=== PATIENT | female | born 1965 | race Caucasian/White ===

== ENCOUNTER 2016-06-12 10:17 | Emergency (ER) | payer OTHER ==
[~2016-06-12] VITALS: Ht 172.7 cm; Wt 63.5 kg
[~2016-06-12 10:17] MED LIST: ALPR0.25 PO; GABA800T OR; LISI-360 PO; NOVOLOGP2 SQ; SIMV20TA OR
[2016-06-12 10:20] VITALS: BP 209/97; PULSE 81; RESP 16; TEMP 98.1; O2SAT 98; O2SAT 99
[2016-06-12] MEDS ORDERED: SODIUM CHLOR 0.9% 1000 ML INJ 1,000 ML IV ONE (10:25)
[2016-06-12] MEDS ORDERED: INSULIN HUMAN REGULAR 1,000 UNITS/10 ML VIAL IV PUSH ONE (10:30)
[2016-06-12] MEDS ORDERED: diphenhydrAMINE HCL 50 MG/ML VIAL IV PUSH ONE (10:30)
[2016-06-12] MEDS ORDERED: SODIUM CHLORIDE 0.9% FLUSH 5 ML FLUSH IVF PRN (10:30)
[2016-06-12] MEDS ORDERED: PROCHLORPERAZINE INJ 10 MG/2 ML VIAL IVS ONE (10:30)
--- NOTE | 2016-06-12 10:36 | PD ---
HPI . Syncope Chief Complaint: syncope Time Seen by Provider: 10:22 Travel History International Travel<30 days: No Contact w/Intl Traveler<30days: No History of Present Illness HPI Patient was sent to us via [facility] from a doctor's office where she had suffered a syncopal episode during a steroid injection. She actually had bilateral wrist injected. She states she did okay with the first injection but then had a syncopal episode with the second injection. She states that she feels very nauseous. She was very lightheaded. [facility] Social History Tobacco Use: Yes Allergies-Medications (Allergen,Severity, Reaction): Coded Allergies: Penicillin (Verified Allergy, Mild, Itching, 06/12/16) Reported Meds & Prescriptions Reported Meds & Active Scripts Active Reported Paxil (Paroxetine HCl) 10 Mg Tab Unknown Dose PO HS Duavee (Conjugated Estrogens-Bazedoxifene) 0.45-20 Mg Tab Unknown Dose PO DAILY Hydrochlorothiazide 25 Mg Tab 25 Mg PO HS Novolog Inj (Insulin Aspart) 1,000 Unit/10 Ml Vial 0 SQ DIRECTED Sliding Scale as directed. Neurontin (Gabapentin) 800 Mg Tab 800 Mg PO HS Review of Systems Except as stated in HPI: all other systems reviewed are Neg General / Constitutional: No: Fever, Chills HENT: Positive: Lightheadedness Cardiovascular: No: Chest Pain or Discomfort Respiratory: No: Shortness of Breath Gastrointestinal: Positive: Nausea, Vomiting Genitourinary: No: Incontinence Musculoskeletal: Positive: Pain (both wrists) Skin: Positive Other (diaphoresis) Neurologic: Positive: Weakness, Dizziness, Syncope, No: Focal Abnormalities Physical Exam Narrative GENERAL: Patient is lying on the stretcher with an emesis bag in her lap. She doesn't like she feels very well. SKIN: Warm and dry. Not currently diaphoretic. HEAD: Atraumatic. Normocephalic. EYES: Pupils equal and round. Extraocular movements are intact. ENT: No nasal bleeding or discharge. Mucous membranes pink and moist. NECK: Trachea midline. Neck is supple. CARDIOVASCULAR: Regular rate and rhythm. Heart sounds are normal. RESPIRATORY: No accessory muscle use. Lungs are clear with full air movement throughout. GASTROINTESTINAL: Abdomen soft, non-tender, nondistended. MUSCULOSKELETAL: No obvious deformities. No edema. She has Band-Aids on both wrists near the extensor tendons of her thumbs. NEUROLOGICAL: Awake and alert. No obvious cranial nerve deficits. Motor grossly within normal limits. Normal speech. PSYCHIATRIC: Appropriate mood and affect; insight and judgment normal. Data Data Last Documented VS Vital Signs Date Time Temp Pulse Resp B/P Pulse Ox O2 Delivery O2 Flow Rate FiO2 06/12/16 10:20 16 99 Room Air 06/12/16 10:20 98.1 81 209/97 Orders Electrocardiogram (06/12/16 10:25) Basic Metabolic Panel (Bmp) (06/12/16 10:25) Complete Blood Count With Diff (06/12/16 10:25) Ckmb (Isoenzyme) Profile (06/12/16 10:25) Troponin I (06/12/16 10:25) Ecg Monitoring (06/12/16 10:25) Iv Access Insert/Monitor (06/12/16 10:25) Oximetry (06/12/16 10:25) Sodium Chloride 0.9% Flush (Ns Flush) (06/12/16 10:30) Sodium Chlor 0.9% 1000 Ml Inj (Ns 1000 M (06/12/16 10:25) Prochlorperazine Inj (Compazine Inj) (06/12/16 10:30) Diphenhydramine Inj (Benadryl Inj) (06/12/16 10:30) Insulin Human Regular Inj (Novolin R Inj (06/12/16 10:30) CKMB (06/12/16 10:30) CKMB% (06/12/16 10:30) Labs Laboratory Tests Test 06/12/16 10:30 White Blood Count 5.1 TH/MM3 Red Blood Count 4.44 MIL/MM3 Hemoglobin 12.9 GM/DL Hematocrit 39.6 % Mean Corpuscular Volume 89.2 FL Mean Corpuscular Hemoglobin 29.0 PG Mean Corpuscular Hemoglobin 32.6 % Concent Red Cell Distribution Width 13.3 % Platelet Count 277 TH/MM3 Mean Platelet Volume 8.3 FL Neutrophils (%) (Auto) 59.3 % Lymphocytes (%) (Auto) 31.0 % Monocytes (%) (Auto) 7.0 % Eosinophils (%) (Auto) 1.5 % Basophils (%) (Auto) 1.2 % Neutrophils # (Auto) 2.9 TH/MM3 Lymphocytes # (Auto) 1.6 TH/MM3 Monocytes # (Auto) 0.4 TH/MM3 Eosinophils # (Auto) 0.1 TH/MM3 Basophils # (Auto) 0.1 TH/MM3 CBC Comment DIFF FINAL Differential Comment Sodium Level 137 MEQ/L Potassium Level 4.3 MEQ/L Chloride Level 100 MEQ/L Carbon Dioxide Level 27.7 MEQ/L Anion Gap 9 MEQ/L Blood Urea Nitrogen 29 MG/DL Creatinine 1.50 MG/DL Estimat Glomerular Filtration 36 ML/MIN Rate Random Glucose 363 MG/DL Calcium Level 8.9 MG/DL Total Creatine Kinase 260 U/L Creatine Kinase MB 3.9 NG/ML Creatine Kinase MB % 1.5 % Troponin I LESS THAN 0.02 NG/ML MDM Medical Decision Making Medical Screen Exam Complete: Yes Emergency Medical Condition: Yes Interpretation(s) EKG shows a normal sinus rhythm with no acute ST segment elevation or depression. She does not have any old EKGs for comparison. Differential Diagnosis My differential diagnosis of syncope includes but is not limited to cardiac arrhythmia, hypovolemia, anemia, neurological catastrophe, vasovagal response Narrative Course Patient presents following a syncopal episode during a procedure. Most likely, it is a vasovagal event. However, she is hyper rather than hypotensive on arrival. Also, her sugar is high. Her CBC is normal. Chemistries are remarkable for diminished renal function and a glucose of 363. RI and troponin are negative. Patient is feeling much better. Critical Care Narrative Aggregate critical care time was [-] minutes. Time to perform other separately billable procedures was not included in the critical care time. My time did not include minutes spent treating any other patients simultaneously or on activities that did not directly contribute to the patient's treatment. The services I provided to this patient were to treat and/or prevent clinically significant deterioration that could result in: Fatal dysrhythmia, cardiovascular collapse, permanent neurological sequela. I provided critical care services requiring my management, as noted below: Chart data review, documentation time, medication orders and management, vital sign assessments/reviewing monitor data, ordering and reviewing lab tests, ordering and interpreting/reviewing x-rays and diagnostic studies, care of the patient and discussion of the patient with the admitting physicians. Diagnosis Primary Impression: Vasovagal syncope Additional Impressions: Hyperglycemia Hypertension Qualified Code: I10 - Essential hypertension Disposition: 01 DISCHARGE HOME Condition: Stable Liz Centeno MD Jun 12, 2016 10:36
[2016-06-12 10:38] LABS: AUTOMATED NEUTROPHIL # 2.9 TH/MM3 (1.8-7.7); BASOPHIL # 0.1 TH/MM3 (0-0.2); BASOPHIL % 1.2 % (0.0-2.0); EOSINOPHIL # 0.1 TH/MM3 (0-0.4); EOSINOPHIL % 1.5 % (0.0-4.0); HEMATOCRIT 39.6 % (35.0-46.0); HEMO FLAGS DIFF FINAL; LYMPHOCYTE # 1.6 TH/MM3 (1.0-4.8); MEAN CELL VOLUME 89.2 FL (80.0-100.0); MEAN CORPUSCULAR HGB CONC 32.6 % (32.0-36.0); NEUT % 59.3 % (16.0-70.0); PLATELET COUNT 277 TH/MM3 (150-450); RED BLOOD COUNT 4.44 MIL/MM3 (4.00-5.30); RED CELL DISTRIBUTION WIDTH 13.3 % (11.6-17.2); WHITE BLOOD COUNT 5.1 TH/MM3 (4.0-11.0)
[2016-06-12 10:46] LABS: CHLORIDE 100 MEQ/L (98-107); POTASSIUM 4.3 MEQ/L (3.5-5.1); SODIUM (NA) 137 MEQ/L (136-145)
[2016-06-12 10:49] LABS: ANION GAP 9 MEQ/L (5-15); BICARBONATE 27.7 MEQ/L (21.0-32.0); BLOOD UREA NITROGEN 29 MG/DL (7-18)
[2016-06-12 10:52] LABS: GLOMERULAR FILTRATION RATE 36 ML/MIN (>89)
[2016-06-12 10:55] LABS: CREATINE KINASE 260 U/L (26-192)
[2016-06-12] MEDS ORDERED: CONJ1TAB PO (10:56)
[2016-06-12] MEDS ORDERED: NOVOLOGP2 SQ (10:56)
[2016-06-12] MEDS ORDERED: NEUR800T PO (10:56)
[2016-06-12] MEDS ORDERED: PAXI10TA2 PO (10:56)
[2016-06-12] MEDS ORDERED: HYDR25TA5 PO (10:56)
[2016-06-12 11:07] LABS: CKMB 3.9 NG/ML (0.5-3.6)
[2016-06-12 12:01] VITALS: BP 160/88
--- NOTE | 2016-06-13 18:53 | EKG ---
Date Performed: 06/12/2016 Time Performed: 10:33:26 PTAGE: 51 years EKG: Sinus rhythm Normal ECG PREVIOUS TRACING : 04/16/2005 08.19 Since previous tracing, no significant change noted DOCTOR: Ara Negro Interpretating Date/Time 06/13/2016 18:52:12
== END 2016-06-12 12:05 | disposition home or self-care (01) ==
LOC: PHED 10:17
DX: R55 Syncope and collapse (principal); R73.9 Hyperglycemia, unspecified; I10 Essential (primary) hypertension; Z72.0 Tobacco use
CPT/HCPCS: 80048; 82550; 82552; 84484; 85025; 93005; J0780; J1815; J7030; 96374; 96375

== ENCOUNTER → 2016-10-22 | Day surgery (SDC) | payer OTHER ==
[~2016-10-22] MED LIST changes: +ACETAMINOPHEN/HYDROcodone 325 MG/7.5 MG TAB ONE; -ALPR0.25 PO; +CONJ1TAB PO; +FLUMAZENIL 0.5 MG/5 ML VIAL ONE; -GABA800T OR; +HYDR25TA5 PO; +KETOROLAC TROMETHAMINE 30 MG/ML (IVP) VIAL IV PUSH ONE; -LISI-360 PO; +MIDAZOLAM HCL 2 MG/2 ML VIAL ONE; +NEUR800T PO; +ONDANSETRON HCL 4 MG/2 ML VIAL IV PUSH ONE; +PAXI10TA2 PO; +PROPOFOL 200 MG/20 ML AMP IV ONE; -SIMV20TA OR; +SODIUM CHLOR 0.9% 1000 ML INJ 1,000 ML IV ONE; +ceFAZolin INJ 1,000 MG VIAL ONE
--- NOTE | 2016-10-22 10:51 | TN ---
cc: SREE ARECHIGA M.D., STEPHEN J. M.D. DATE OF SURGERY 10/22/2016 PREOPERATIVE DIAGNOSIS Patient with postmenopausal bleeding cervical polyp. PROCEDURE Exam under anesthesia, diagnostic hysteroscopy with polypectomy, dilatation and curettage. POSTOPERATIVE DIAGNOSIS Patient with postmenopausal bleeding cervical polyp. SURGEON Arvin Lopez MD ANESTHESIA General with LMA ESTIMATED BLOOD LOSS Minimal DRAINS None PATHOLOGY SPECIMEN Included endocervical polyp and endometrial curettings with fragments of a polyp. INDICATIONS FOR THE PROCEDURE Patient with episodic bleeding, has been postmenopausal for several years. Ultrasound revealed a thickening within the endometrial lining, as well as a visible polyp at the external os of the cervix. Recommendation is to proceed with diagnostic hysteroscopy, biopsy and dilatation and curettage. The patient received Ancef 2 grams prophylactically. DESCRIPTION OF PROCEDURE The patient was taken to the operating room in stable condition and underwent general anesthesia with LMA placement. She was carefully positioned in the dorsolithotomy position using candy-cane stirrups on the lower extremities. She had sequentials placed for VTE prophylaxis. She was prepped and draped. A time-out was conducted, agreed by all present in the room. Examination of the patient's anatomy was conducted. The patient had no evidence of prolapse. Cervix was midline. Normal size and shape. A 1 cm polyp was evident at the external os. Visualization of the endometrial cavity was accomplished by securing the cervix with a single-tooth tenaculum and dilating the cervix in a serial fashion to accommodate a 5 mm rigid hysteroscope. Normal saline was used as a distension media. Examination of the cavity revealed a polypoid endometrium with a small polyp. After removal of the hysteroscope, a small polyp forceps was used to remove the visible polyp from the endocervix and then a combination of sharp curettage and use of a polyp forceps was used to remove the tissue in the endometrial cavity. Re-examination of the cavity after dilatation curettage revealed removal of visible lesions previously. There is no perforation and there was minimal bleeding. At the end of the case, the final count was correct. The patient was stable. She was taken to the Recovery Room on room air. Surgical pathology specimens were labeled endocervical polyp and endometrial contents with biopsy of endometrium. MD KATIE Guerrero/DJL /10:32 AM /10:37 AM
== END | disposition home or self-care (01) ==
LOC: ESDC 08:36
PROVIDERS: ATTEND Obstetrics & Gynecology
DX: N95.0 Postmenopausal bleeding (principal); N84.1 Polyp of cervix uteri; E11.9 Type 2 diabetes mellitus without complications; Z79.4 Long term (current) use of insulin
CPT/HCPCS: 00952; 58558; 82948; 88305; J0690; J1885; J2250; J2405; J3010; J7030